=== PATIENT | female | born 1945 | race African-American/Black ===

== ENCOUNTER 2020-07-14 12:37 | Inpatient (IN) ==
[2020-07-14] MEDS ORDERED: Ringers Solution, Lactated 1,000 ML IVC SCH ×2 (13:00→16:48)
[2020-07-14] MEDS ORDERED: CeFAZolin Syr 2,000MG/20 ML 2,000 MG/20 ML SYRINGE IVPB ONE (13:00)
[2020-07-14] MEDS ORDERED: *HR* Midazolam HCl 2 MG/2 ML VIAL ONE (13:29)
[2020-07-14] MEDS ORDERED: *HR* FentaNYL (PF) 100 MCG/2 ML VIAL ONE (13:30)
[2020-07-14] MEDS ORDERED: Ropivacaine/PF 0.5% 30 ML VIAL ONE (13:30)
[2020-07-14] MEDS ORDERED: ROPIVACAINE/PF/NS 0.25% 1 EACH SYRINGE INTRAART ONE (13:30)
[2020-07-14] MEDS ORDERED: Ondansetron 4 MG/2 ML VIAL ONE (13:40)
[2020-07-14] MEDS ORDERED: *HR* Propofol 200 MG/20 ML VIAL IVP ONE (13:40)
[2020-07-14] MEDS ORDERED: Lidocaine HCL 4 ML Topical Solution (Laryng-O-Jet Kit Sterile Pak) TP ONE (13:40)
[2020-07-14] MEDS ORDERED: Lidocaine -MPF 2% 2 ML VIAL ONE (13:40)
[2020-07-14] MEDS ORDERED: Povidone-Iodine 45 ML, Sodium Chloride IRRigation 1,000 ML IR ONE (15:10)
[2020-07-14] MEDS ORDERED: EPHEDrine 50 MG/ML VIAL ONE (15:19)
[2020-07-14 16:34] LABS: Hematocrit 35.7 % (35.3-44.9); Hemoglobin 10.9 g/dL (11.5-15.4)
[2020-07-14] MEDS ORDERED: Sennosides 8.6 MG TABLET PO PRN (16:48)
[2020-07-14] MEDS ORDERED: Dextrose Gel 15 GM/37.5 ML TUBE PO PRN ×2 (16:48)
[2020-07-14] MEDS ORDERED: Naloxone 0.4 MG/ML INJ IVP PRN (16:48)
[2020-07-14] MEDS ORDERED: *HR* Dextrose 50 % in Water (Vial) 50 ML VIAL IVP PRN (16:48)
[2020-07-14] MEDS ORDERED: Ondansetron 4 MG/2 ML VIAL IVP PRN (16:48)
[2020-07-14] MEDS ORDERED: *HR* OxyCODONE Immed Rel 5 MG TABLET PO PRN (16:48)
[2020-07-14] MEDS ORDERED: D5% in Water 1,000 ML IVC PRN (16:48)
[2020-07-14] MEDS ORDERED: MOM Conc 10 ML UD.LIQ PO PRN (16:48)
[2020-07-14] MEDS ORDERED: *HR* Enoxaparin 30 MG/0.3 ML SYRINGE SQ SCH (18:00)
[2020-07-14] MEDS ORDERED: Ethanol\\Acetic Acid\\Na Ace\\Ben 1,000 ML IRRIG.SOLN IR ONE (18:13)
[2020-07-14] MEDS ORDERED: Vancomycin 1,000 MG VIAL ONE (18:13)
[2020-07-14] MEDS: Insulin LISPRO 300 UNITS/3 ML VIAL SUBQ SCH (18:22)
[2020-07-14] MEDS: *HR* Metformin 500 MG TABLET PO SCH (18:23)
[2020-07-14] MEDS: *HR* Enoxaparin 30 MG/0.3 ML SYRINGE SQ SCH (18:33)
[2020-07-14] MEDS ORDERED: Insulin LISPRO 300 UNITS/3 ML VIAL SUBQ SCH (21:00)
[2020-07-14] MEDS: CeFAZolin 2 GM/120 ML BAG IVPB SCH (22:07)
[2020-07-14] MEDS: tiZANidine 4 MG TABLET PO SCH (22:13)
[2020-07-15] MEDS: *HR* OxyCODONE/APAP 5/325 TABLET PO PRN ×2 (01:33→06:27)
[2020-07-15 01:57] LABS: Hematocrit 32.9 % (35.3-44.9); Hemoglobin 10.1 g/dL (11.5-15.4)
[2020-07-15 02:21] LABS: BUN/Creatinine Ratio 19 (6-26); Blood Urea Nitrogen 21 mg/dL (8-23); Calcium 8.8 mg/dL (8.6-10.3); Carbon Dioxide 20 mEq/L (23-29); Chloride 105 mEq/L (98-107); Glucose 277 mg/dL (70-105); Osmolality,Calculated 297 (280-300); Potassium 4.4 mEq/L (3.5-5.1); Sodium 137 mEq/L (136-145); eGFR For African Americans > 60 (> 60); eGFR For Non-African Americans 50 (> 60)
[2020-07-15] MEDS: CeFAZolin 2 GM/120 ML BAG IVPB SCH (06:22)
[2020-07-15] MEDS: *HR* Enoxaparin 30 MG/0.3 ML SYRINGE SQ SCH (06:25)
[2020-07-15] MEDS ORDERED: [UNRECOGNIZED DRUG - OTHER] PO SCH (09:00)
[2020-07-15] MEDS ORDERED: DIPHENHYDRAMINE PO SCH (09:00)
[2020-07-15] MEDS ORDERED: Aspirin Enteric Coated 325 MG Tablet PO SCH (09:00)
[2020-07-15] MEDS ORDERED: Magnesium Oxide 400 MG TABLET PO SCH (09:00)
[2020-07-15] MEDS ORDERED: ACETAMINOPHEN PO SCH (09:00)
[2020-07-15] MEDS ORDERED: lisinopriL 10 MG TABLET PO SCH (09:00)
[2020-07-15] MEDS ORDERED: Furosemide 20 MG TABLET PO SCH (09:00)
[2020-07-15] MEDS: *HR* Metformin 500 MG TABLET PO SCH (09:39)
[2020-07-15] MEDS: tiZANidine 4 MG TABLET PO SCH (09:40)
[2020-07-15] MEDS: Insulin LISPRO 300 UNITS/3 ML VIAL SUBQ SCH ×2 (09:46→11:56)
[2020-07-15 11:00] VITALS: BP 122/72
== END 2020-07-15 15:02 | disposition home or self-care (01) | DRG 483 ==
LOC: SAMDAY 12:37 → 3NENU 16:26
PROVIDERS: ADMIT Orthopaedic Surgery; ATTEND Orthopaedic Surgery